=== PATIENT | female | born 1990 | race Hispanic/Latino ===

== ENCOUNTER 2018-02-12 08:30 | Emergency (ER) | payer OTHER ==
[2018-02-12 09:16] LABS: BHCG - Serum Negative (NEGATIVE); Pregs Control Bar Appear? YES (CONTROL BAR)
[2018-02-12 09:17] LABS: Pregs Control Background? CLEAR/WHITE (CLR/WHITE)
[2018-02-12 09:19] LABS: #Basophils 0.1 thou/uL (0.0-0.2); #Eosinphils 0.2 thou/uL (0.0-0.7); #Lymphocytes 1.2 thou/uL (1.20-3.40); #Monocytes 0.8 thou/uL (0.11-0.59); #Neutrophils 11.1 thou/uL (1.40-6.50); %Basophils 1.1 % (0.0-1.0); %Eosinophils 1.5 % (0.0-10.0); %Lymphocytes 8.7 % (21.0-51.0); %Neutrophils 82.7 % (42.0-75.0); Hemoglobin 13.4 g/dL (12.0-16.0); Mean Corpuscular HGB CONC 34.1 g/dL (32.0-36.0); Mean Corpuscular Hemoglobin 31.3 pg (27.0-31.0); Mean Corpuscular Volume 91.7 fL (78.0-98.0); Mean Platelet Volume 7.5 fL (7.4-10.4); Platelet Count 266 thou/uL (130-400); RBC Distribution Width 10.6 % (11.5-14.5); Red Blood Cell (RBC) Count 4.27 mill/uL (4.20-5.40); White Blood Cell (WBC) Count 13.4 thou/uL (4.8-10.8)
[2018-02-12 09:25] LABS: ALT (SGPT) 16 U/L (8-55); AST (SGOT) 18 U/L (5-34); Albumin 4.2 g/dL (3.5-5.0); Alkaline Phosphatase 43 U/L (40-150); Anion Gap 14 mmol/L (10-20); BUN (Urea Nitrogen) 15 mg/dL (7.0-18.7); Bilirubin, Total 0.6 mg/dL (0.2-1.2); Calc. Creatinine Clearance 0 mL/min (70-130); Calcium 8.9 mg/dL (7.8-10.44); Carbon Dioxide 25 mmol/L (22-29); Chloride 104 mmol/L (98-107); Estimated GFR-MDRD 81; Globulin 3.4 g/dL (2.4-3.5); Glucose 92 mg/dL (70-105); Lipase 14 U/L (8-78); Potassium 4.2 mmol/L (3.5-5.1); Protein, Total 7.6 g/dL (6.0-8.3); Sodium 139 mmol/L (136-145)
[2018-02-12 09:27] LABS: Bilirubin Negative (Negative); Blood, Urine Trace (Negative); Clarity Hazy (Clear); Glucose, Urine (Dipstick) Negative (Negative); Leukocyte Trace (Negative); Nitrite Negative (Negative); Protein, Urine (Dipstick) Trace mg/dL (Neg-Trace); Specific Gravity, Urine 1.015 (1.005-1.030); Urobilinogen 0.2 mg/dL (0.2-1.0); pH, Urine 7.5 (5.0-9.0)
[2018-02-12 09:37] LABS: Bacteria/HPF Rare-Few HPF (None Seen); RBC/HPF 0-3 HPF (0-3); WBC/HPF 0-3 HPF (0-3)
[2018-02-12 09:47] LABS: CK (CPK) 81 U/L (29-168)
[2018-02-15 02:01] LABS: Chlamydia by PCR DETECTED (NotDetected); GC by PCR Not Detected (NotDetected)
== END 2018-02-12 11:13 | disposition home or self-care (01) ==
LOC: SCSER 08:30
DX: N93.9 Abnormal uterine and vaginal bleeding, unspecified (principal); F41.9 Anxiety disorder, unspecified
CPT/HCPCS: 80053; 81003; 81015; 82150; 82550; 83605; 83690; 84703; 85025; 86850; 86900; 86901; 87480; 87491; 87510; 87591; 87660; 94760